=== PATIENT | female | born 1955 | race Caucasian/White ===

== ENCOUNTER 2023-04-11 13:46 | Outpatient (REF) | payer OTHER, SELFPAY ==
--- NOTE | ~2023-04-11 | MM_ITS ---
EXAMINATION: BONE DENSITOMETRY CLINICAL INDICATION: Asymptomatic menopausal state. COMPARISON: None (current study represents initial baseline exam). TECHNIQUE: Using a [employer] DXA System (software version: 13.1) manufactured by [employer], dual-energy x-ray absorptiometry was performed of the lumbar spine and left hip. The images are of good technical quality. Summary results are attached. FINDINGS: AP SPINE L1-L4: BMD 0.922 g/cm2, Z-score -1.4, T-score -2.2, osteopenia. LEFT FEMUR, NECK: BMD 0.767 g/cm2, Z-score -1.0, T-score -2.0, osteopenia. LEFT FEMUR, TOTAL: BMD 0.818 g/cm2, Z-score -0.9, T-score -1.5, osteopenia. IDENTIFIED RISK FACTORS: Height loss, low calcium intake, menopause, rheumatoid arthritis, tobacco user (current smoker). HISTORY OF FRACTURE: None listed. MEDICATIONS: Multivitamin. MM/XR DEXA axial skeleton IMPRESSION: 1. DIAGNOSIS: Osteopenia based on the lowest T-score value of -2.2 in the lumbar spine applying World Health Organization criteria. 2. 10-YEAR FRACTURE RISK PREDICTION, FRAX: Major osteoporotic fracture (clinical spine, forearm, hip or shoulder) 7.6%. Hip fracture 1.9%. 3. Treatment Recommendations: NOF guidelines recommend consideration for treatment in postmenopausal women and men age 50 and older presenting with the following: -A hip or vertebral (clinical or morphometric) fracture. -T-score less than or equal to -2.5 at the femoral neck or spine after appropriate evaluation to exclude secondary causes. -Low bone mass at the hip or spine and a 10-year fracture probability by FRAX of greater than or equal to 3% for hip fracture or greater than or equal to 20% for major osteoporotic fracture based on the [place] adapted WHO algorithm. 4. Other Recommendations: All treatment decisions require clinical judgment and consideration of individual patient factors, including patient preferences, comorbidities, previous drug use, risk factors not captured in the FRAX model (e.g. frailty, falls, vitamin D deficiency, increased bone turnover, interval significant decline in bone density) and possible under or overestimation of fracture risk by FRAX. Additional medical evaluation for secondary cause of low bone mineral density may be appropriate. FUTURE SCAN RECOMMENDATION: People with diagnosed cases of osteoporosis or at high risk for fracture should have regular bone mineral density tests. For patients eligible for Medicare, routine testing is allowed once every 2 years. The testing frequency can be increased to one year for patients who have rapidly progressing disease, those who are receiving or discontinuing medical therapy to restore bone mass, or have additional risk factors.
== END 2023-04-11 13:47 | disposition home or self-care (01) ==
LOC: HO.MAMMO 13:46
PROVIDERS: PCP Internal Medicine Geriatric Medicine; Visit Provider Internal Medicine Geriatric Medicine
DX: Z13.820 Encounter for screening for osteoporosis (principal); Z78.0 Asymptomatic menopausal state
CPT/HCPCS: 77080

== ENCOUNTER 2024-02-05 10:42 | Outpatient (REF) | payer MEDICARE, MEDICAID, SELFPAY ==
[2024-02-05 11:47] LABS: MANUAL DIFF FLAG NO
[2024-02-05 12:04] LABS: Basophils Absolute Auto 0.1 X10*3/uL (0.0-0.2); Eosinophils Absolute Auto 0.3 X10*3/uL (0.0-0.4); Eosinophils Percent Auto 3.3 % (0-4); Hematocrit 35.4 % (37.0-47.0); Imm Gran Abs Auto 0.03 X10*3/uL (0.00-0.03); Imm Gran Pct Auto 0.3 % (0.0-0.4); Lymphocytes Absolute Auto 2.6 X10*3/uL (1.2-4.9); Lymphocytes Percent Auto 28.8 % (20-40); Mean Corpuscular HGB Conc 31.1 g/dl (31.0-35.0); Mean Corpuscular Hemoglobin 29.6 pg (27.0-33.0); Mean Corpuscular Volume 95.2 fL (80.0-98.0); Mean Platelet Volume 11.6 fL (9.4-12.3); Monocytes Absolute Auto 0.6 X10*3/uL (0.1-1.2); Monocytes Percent Auto 6.4 % (2-11); Neutrophils Absolute Auto 5.4 x10*3/uL (2.0-8.3); Neutrophils Percent Auto 60.2 % (45-73); Platelet Count 315 X10*3/uL (160-400); Red Blood Count 3.72 X10*6/uL (4.20-5.50); Red Cell Distribution Width 14.1 % (11.0-16.0); White Blood Count 8.9 X10*3/uL (4.8-10.8)
[2024-02-05 12:19] LABS: Anion Gap 13 (12-20); Blood Urea Nitrogen 9 mg/dL (9-16); Calcium 9.3 mg/dL (8.4-10.2); Carbon Dioxide 29 mmol/L (22-29); Chloride 104 mmol/L (96-108); Estimated Glomerular Filt Rate > 60; Glucose Random 105 mg/dL (60-115); Potassium 3.9 mmol/L (3.3-5.1); Sodium 142 mmol/L (135-145)
== END 2024-02-05 10:43 | disposition home or self-care (01) ==
LOC: HO.HHCL 10:42
PROVIDERS: Visit Provider Internal Medicine Geriatric Medicine
DX: I10 Essential (primary) hypertension (principal); E11.42 Type 2 diabetes mellitus with diabetic polyneuropathy; Z79.01 Long term (current) use of anticoagulants; Z86.711 Personal history of pulmonary embolism
CPT/HCPCS: 36415; 80048; 85025

== ENCOUNTER 2024-04-14 11:03 | Outpatient (REF) | payer OTHER, SELFPAY ==
[2024-04-14 13:19] LABS: MANUAL DIFF FLAG NO
[2024-04-14 13:31] LABS: Basophils Absolute Auto 0.1 X10*3/uL (0.0-0.2); Basophils Percent Auto 0.9 % (0-2); Eosinophils Absolute Auto 0.2 X10*3/uL (0.0-0.4); Eosinophils Percent Auto 2.1 % (0-4); Hematocrit 31.5 % (37.0-47.0); Hemoglobin 9.7 g/dl (12.0-16.0); Imm Gran Abs Auto 0.03 X10*3/uL (0.00-0.03); Imm Gran Pct Auto 0.4 % (0.0-0.4); Lymphocytes Absolute Auto 2.6 X10*3/uL (1.2-4.9); Lymphocytes Percent Auto 30.4 % (20-40); Mean Corpuscular HGB Conc 30.8 g/dl (31.0-35.0); Mean Corpuscular Hemoglobin 26.9 pg (27.0-33.0); Mean Corpuscular Volume 87.3 fL (80.0-98.0); Mean Platelet Volume 11.2 fL (9.4-12.3); Monocytes Absolute Auto 0.6 X10*3/uL (0.1-1.2); Monocytes Percent Auto 7.4 % (2-11); Neutrophils Percent Auto 58.8 % (45-73); Platelet Count 418 X10*3/uL (160-400); Red Blood Count 3.61 X10*6/uL (4.20-5.50); Red Cell Distribution Width 14.3 % (11.0-16.0); White Blood Count 8.6 X10*3/uL (4.8-10.8)
[2024-04-14 13:39] LABS: Anion Gap 12 (12-20); Blood Urea Nitrogen 12 mg/dL (9-16); Calcium 9.5 mg/dL (8.4-10.2); Carbon Dioxide 27 mmol/L (22-29); Chloride 103 mmol/L (96-108); Estimated Glomerular Filt Rate > 60; Glucose Random 129 mg/dL (60-115); Potassium 3.3 mmol/L (3.3-5.1); Sodium 139 mmol/L (135-145)
== END 2024-04-14 11:04 | disposition home or self-care (01) ==
LOC: HO.HHCL 11:03
PROVIDERS: Visit Provider Internal Medicine Geriatric Medicine
DX: D64.9 Anemia, unspecified (principal); N17.9 Acute kidney failure, unspecified
CPT/HCPCS: 36415; 80048; 85025

== ENCOUNTER 2025-02-18 13:07 | Outpatient (REF) | payer OTHER, SELFPAY ==
--- OUTSIDE RECORDS SUMMARY | 2025-02-18 15:00 | XMS_ITS | Encounter Summary ---
Author Organization [employer] Address [address] [facility] 7t [place] [address] Care Team Providers Care Petroleum Inspector Supervisor Name Role Phone Name, Gilberto BOURNE Primary Care Provider [phone] Reason for Visit * Reason Onset Date Comments Medication Question 11/20/2023 Encounter Details Date Type Department Care Team ([facility] st Contact Info) Description 11/20/2023 Telephone [facility] MEDICINE [address] [place] [address] Name, MD Gilberto [address] [place] [address] Medication Question Social History Tobacco Use Types Packs/Day Years Used Date Smoking Tobacco: Every Day Cigarettes Passive Smoke Exposure: Never Smokeless Tobacco: Never Alcohol Use Standard Drinks/Week Comments Never 0 (1 standard drink = 0.6 oz pur e alcohol) PHQ-2 Answer Date Recorded Patient Health Questionnaire-2 Score 0 12/09/2022 Housing Stability Answer Date Recorded What is your housing situation today? I have elie cade 09/01/[address] you li ve. Do you have problems with any of the following? None of the above 09/01/2023 Food Insecurity Answer Date Recorded Within the past 12 months, y ou worried that your food would run out before you got money to buy more: Never True 09/01/2023 Within the past 12 months,th e food you bought just didn't last and you didn't have enough money to get more: Never True Transportation Answer Date Recorded In the past 12 months, has l ack of transportation kept you from medical appts, meetings, work or from getting things needed for daily living? No 09/01/2023 Utilities Answer Date Recorded In the past 12 months, has t he electric, gas, oil or water company threatened to shut off services in your home? No 09/01/2023 Depression Answer Date Recorded Patient Health Questionnaire-2 Score 0 12/09/2022 Comments Unknown Sex and Gender Information Value Date Recorded Sex Assigned at Female 09/16/2022 10:29 AM EDT Legal Sex Female 10:29 AM EDT Gender Identity Female 09/16/2022 10:29 AM EDT Sexual Orientation Straight 09/16/2022 10 :29 AM EDT documented as of this encounter Miscellaneous Notes * Telephone Encounter - Sukhjinder Villareal RN - 11/24/2023 4:24 PM EST T/C to [phone] for below message, No answer, LVM to call back on [phone]. * Telephone Encounter - Dashawn Soares - 11/20/2023 12:29 PM EST Tc from [facility] wanting to let pcp know she was wake and maintaining conversation during her visit today. Francy is also requesting a call back in regards toa few medication discrepancies and medication pt is not taking. Please contact Francy at [phone]. documented in this encounter Plan of Treatment Upcoming Encounters Date Type Department Care Team (Late st Contact Info) Description 05/30/2025 2:30 PM EDT Office Visit [facility] MEDICINE [address] [place] [address] Name, MD Gilberto [address] [place] [address] documented as of this encounter Visit Diagnoses Not on filedocumented in this encounter Care Teams Petroleum Inspector Supervisor Relationship Specialty Start Date End Date Name, MD Gilberto [address] [place] [phone] PCP - General Family Medicine 01/12/16 [employer] 07/29/24 documented as of this encounter
--- OUTSIDE RECORDS SUMMARY | 2025-02-18 15:00 | XMS_ITS | Encounter Summary ---
Author Organization [facility] Address [address] [facility] 7t [place] [address] Care Team Providers Care Development Educator Name Role Phone Name, Gilberto BOURNE Primary Care Provider [phone] Encounter Details Date Type Department Care Team (Late st Contact Info) Description 04/18/2023 Abstract [facility] MEDICINE [address] [place] [address] [phone] Name, MD Gilberto [address] [place] [phone] Social History Tobacco Use Types Packs/Day Years Used Date Smoking Tobacco: Never Smokeless Tobacco: Never PHQ-2 Answer Date Recorded Patient Health Questionnaire-2 Score 0 12/09/2022 Depression Answer Date Recorded Patient Health Questionnaire-2 Score 0 12/09/2022 Comments Unknown Sex and Gender Information Value Date Recorded Sex Assigned at Female 09/16/2022 10:29 AM EDT Legal Sex Female 10:29 AM EDT Gender Identity Female 09/16/2022 10:29 AM EDT Sexual Orientation Straight 09/16/2022 10 :29 AM EDT COVID-19 Exposure Response Date Recorded In the last 10 days, have yo u been in contact with someone who was confirmed or suspected to have Coronavirus/COVID-19? No / Unsure 03/26/2023 3:14 PM EDT documented as of this encounter Plan of Treatment Upcoming Encounters Date Type Department Care Team (Late st Contact Info) Description 05/30/2025 2:30 PM EDT Office Visit [facility] MEDICINE [address] [place] [address] [phone] Name, MD Gilberto [address] [place] [address] [phone] documented as of this encounter Procedures Procedure Name Priority Date/Time Associated Diagnosis Comments COLONOSCOPY Routine 07/09/2022 12:14 PM EDT documented in this encounter Results * Hm Colonoscopy (07/09/2022 12:14 PM EDT) Colonoscopy Normal Normal Narrative Ketty Peguero - 07/09/2022 12:14 PM EDT Recommended 7 years follow up Historical Provider HEALTH MAINTENANCE Final Result documented in this encounter Visit Diagnoses Not on filedocumented in this encounter Care Teams Development Educator Relationship Specialty Start Date End Date Name, MD Gilberto [address] [place] [address] PCP - General Family Medicine 01/12/16 [employer] 07/29/24 documented as of this encounter
--- OUTSIDE RECORDS SUMMARY | 2025-02-18 15:00 | XMS_ITS | Encounter Summary ---
Author Organization [employer] Address [address] [facility] 7t [place] [address] Care Team Providers Care Journal Box Inspector Name Role Phone Name, Gilberto BOURNE Primary Care Provider [phone] Reason for Visit * Reason Comments Med Refill Encounter Details Date Type Department Care Team ([facility] st Contact Info) Description 06/30/2024 Refill [facility] MEDICINE [address] [place] [address] Name, MD Gilberto [address] [place] [address] Chronic pain syndrome Social History Tobacco Use Types Packs/Day Years Used Date Smoking Tobacco: Former Cigarettes Passive Smoke Exposure: Never Smokeless Tobacco: Never Alcohol Use Standard Drinks/Week Comments Never 0 (1 standard drink = 0.6 oz pur e alcohol) PHQ-2 Answer Date Recorded Patient Health Questionnaire-2 Score 0 12/09/2022 Housing Stability Answer Date Recorded What is your housing situation today? I have elie cade 01/06/[address] you li ve. Do you have problems with any of the following? None of the above 01/06/2024 Food Insecurity Answer Date Recorded Within the past 12 months, y ou worried that your food would run out before you got money to buy more: Never True 01/06/2024 Within the past 12 months,th e food you bought just didn't last and you didn't have enough money to get more: Never True Transportation Answer Date Recorded In the past 12 months, has l ack of transportation kept you from medical appts, meetings, work or from getting things needed for daily living? No 01/06/2024 Utilities Answer Date Recorded In the past 12 months, has t he electric, gas, oil or water company threatened to shut off services in your home? No 01/06/2024 Depression Answer Date Recorded Patient Health Questionnaire-2 Score 2 01/06/2024 Comments Unknown Sex and Gender Information Value Date Recorded Sex Assigned at Female 09/16/2022 10:29 AM EDT Legal Sex Female 10:29 AM EDT Gender Identity Female 09/16/2022 10:29 AM EDT Sexual Orientation Straight 09/16/2022 10 :29 AM EDT documented as of this encounter Plan of Treatment Upcoming Encounters Date Type Department Care Team (Late st Contact Info) Description 05/30/2025 2:30 PM EDT Office Visit [facility] MEDICINE [address] [place] [phone] Name, MD Gilberto [address] [place] [phone] documented as of this encounter Visit Diagnoses Diagnosis Chronic pain syndrome documented in this encounter Care Teams Journal Box Inspector Relationship Specialty Start Date End Date Name, MD Gilberto [address] [place] [phone] PCP - General Family Medicine 01/12/16 [employer] 07/29/24 documented as of this encounter
--- OUTSIDE RECORDS SUMMARY | 2025-02-18 15:00 | XMS_ITS | Encounter Summary ---
Author Organization [employer] Address [address] [facility] 7t [place] [address] Care Team Providers Care Medical Attendant Name Role Phone Name, Gilberto BOURNE Primary Care Provider [phone] Reason for Visit * Reason Onset Date Comments Call Back Request 08/26/2023 Encounter Details Date Type Department Care Team ([facility] st Contact Info) Description 08/26/2023 Telephone [facility] MEDICINE [address] [place] [address] Name, MD Gilberto [address] [place] [address] Call Back Request Social History Tobacco Use Types Packs/Day Years Used Date Smoking Tobacco: Every Day Cigarettes Passive Smoke Exposure: Never Smokeless Tobacco: Never Alcohol Use Standard Drinks/Week Comments Never 0 (1 standard drink = 0.6 oz pur e alcohol) PHQ-2 Answer Date Recorded Patient Health Questionnaire-2 Score 0 12/09/2022 Housing Stability Answer Date Recorded What is your housing situation today? I have elie cade 08/26/[address] you li ve. Do you have problems with any of the following? None of the above 08/26/2023 Food Insecurity Answer Date Recorded Within the past 12 months, y ou worried that your food would run out before you got money to buy more: Never True 08/26/2023 Within the past 12 months,th e food you bought just didn't last and you didn't have enough money to get more: Never True 08/2023 Transportation Answer Date Recorded In the past 12 months, has l ack of transportation kept you from medical appts, meetings, work or from getting things needed for daily living? No 08/26/2023 Utilities Answer Date Recorded In the past 12 months, has t he electric, gas, oil or water company threatened to shut off services in your home? No 08/26/2023 Depression Answer Date Recorded Patient Health Questionnaire-2 Score 0 12/09/2022 Comments Unknown Sex and Gender Information Value Date Recorded Sex Assigned at Female 09/16/2022 10:29 AM EDT Legal Sex Female 10:29 AM EDT Gender Identity Female 09/16/2022 10:29 AM EDT Sexual Orientation Straight 09/16/2022 10 :29 AM EDT documented as of this encounter Miscellaneous Notes * Telephone Encounter - Sukhjinder Villareal RN - 09/15/2023 4:00 PM EDT T/C to pt. For below message, pt. Wants to re-schedule Tele. Nurse visit. Pt. Re-schedule for tele.Nurse visit on 09/16/2023. Pt. Verbally agreed and understood. * Telephone Encounter - Jennifer Espinoza - 09/15/2023 10:51 AM EDT Tc from pt requesting a call back in regards below. * Telephone Encounter - Sukhjinder Villareal RN - 09/01/2023 10:56 AM EDT T/C to pt. Through studdex id - [id number] to inform pt. That she suppose not to take Pravastatin 20 mg, she suppose to take only Pravastatin 40 mg, Pravastatin 20 mg was discontinue, No answer. Lvm to call back on [phone]. * Telephone Encounter - Sukhjinder Villareal RN - 09/01/2023 10:44 AM EDT T/C form [facility], just want to make sure that pt. Is on pravastatin 40 mg only not on Pravastatin 20 mg. [facility] was informed that Pt. Is only on Pravastatin 40 mg, Pravastatin 20 mg was discontinued. RN will also call pt. And make sure that pt. Should not take Pravastatin 20 mg any more. [facility] verbally agreed and understood. * Telephone Encounter - Sukhjinder Villareal RN - 09/01/2023 9:54 AM EDT Return T/C to [facility] on [phone] for below message, No answer. LVM to call back on [phone]. * Telephone Encounter - Jennifer Espinoza - 08/26/2023 2:05 PM EDT Tc from [facility] (Nurse Practitioner) requesting a call back on regards pt medications. Please contact [facility] at [phone] documented in this encounter Plan of Treatment Upcoming Encounters Date Type Department Care Team (Late st Contact Info) Description 05/30/2025 2:30 PM EDT Office Visit [facility] MEDICINE [address] [place] [phone] Name, MD Gilberto [address] [place] [address] documented as of this encounter Visit Diagnoses Not on filedocumented in this encounter Care Teams Medical Attendant Relationship Specialty Start Date End Date Name, MD Gilberto [address] [place] [address] PCP - General Family Medicine 01/12/16 [employer] 07/29/24 documented as of this encounter
--- OUTSIDE RECORDS SUMMARY | 2025-02-18 15:00 | XMS_ITS | Encounter Summary ---
Author Organization [employer] Address [address] [facility] 7t [place] [address] Care Team Providers Care Pulp Cooker Name Role Phone Name, Gilberto BOURNE Primary Care Provider [phone] Reason for Visit * Reason Comments Med Refill Encounter Details Date Type Department Care Team ([facility] st Contact Info) Description 11/19/2024 Refill [facility] MEDICINE [address] [place] [address] Name, MD Gilberto [address] [place] [address] Social History Tobacco Use Types Packs/Day Years [...] Description 05/30/2025 2:30 PM EDT Office Visit [facility] MEDICINE [address] [place] [phone] NameGilberto MD [address] [place] [address] documented as of this encounter Visit Diagnoses Not on filedocumented in this encounter Care Teams Pulp Cooker Relationship Specialty Start Date End Date NameGilberto MD [address] [place] [phone] PCP - General Family Medicine 01/12/16 [employer] 07/29/24 documented as of this encounter
--- OUTSIDE RECORDS SUMMARY | 2025-02-18 15:00 | XMS_ITS | Encounter Summary ---
Author Organization [employer] Address [address] [facility] 7t [place] [address] Care Team Providers Care Voting Machine Mechanic Name Role Phone Name, Gilberto BOURNE Primary Care Provider [phone] Reason for Visit * Reason Onset Date Comments Referral 02/05/2023 Encounter Details Date Type Department Care Team (Late st Contact Info) Description 02/05/2023 Telephone [facility] MEDICINE [address] [place], [place] [phone] Name, MD Gilberto [address] [place] [address] Referral Social History Tobacco Use Types Packs/Day Years [...] encounter Miscellaneous Notes * Telephone Encounter - Bc Spaulding - 02/05/2023 12:29 PM EDT Tc from pt requesting a referral for [facility] for implants. please contact pt at [phone] documented in this encounter Plan of Treatment Upcoming Encounters Date Type Department Care Team (Late st Contact Info) Description 05/30/2025 2:30 PM EDT Office Visit [facility] MEDICINE [address] [place] [address] Name, [place] [address] documented as of this encounter Visit Diagnoses Not on filedocumented in this encounter Care Teams Voting Machine Mechanic Relationship Specialty Start Date End Date Name, MD Gilberto [facility] [place] [address] PCP - General Family Medicine 01/12/16 [email or web address] 07/29/24 documented as of this encounter
--- OUTSIDE RECORDS SUMMARY | 2025-02-18 15:00 | XMS_ITS | Encounter Summary ---
Author Organization [employer] Address [address] [facility] 7t [place] [address] Care Team Providers Care Migrant Leader Name Role Phone Name, Gilberto BOURNE Primary Care Provider [phone] Reason for Visit * Reason Comments Med Refill Encounter Details Date Type Department Care Team ([facility] st Contact Info) Description 07/31/2024 Refill [facility] MEDICINE [address] [place] [address] Name, MD Gilberto [address] [place] [address] Chronic pain syndrome Social History Tobacco Use [...] Description 05/30/2025 2:30 PM EDT Office Visit [facility] MEDICINE [address] [place] [phone] Name, MD Gilberto [address] [place] [address] documented as of this encounter Visit Diagnoses Diagnosis Chronic pain syndrome documented in this encounter Care Teams Migrant Leader Relationship Specialty Start Date End Date Name, MD Gilberto [address] [place] [address] PCP - General Family Medicine 01/12/16 [employer] 07/29/24 documented as of this encounter
--- OUTSIDE RECORDS SUMMARY | 2025-02-18 15:00 | XMS_ITS | Encounter Summary ---
Author Organization [employer] [facility] Address [address] [facility] 7t [place] [address] Care Team Providers Care Moshgiach Name Role Phone NameGilberto MD Primary Care Provider Reason for Visit * Reason Comments Med Refill Encounter Details Date Type Department Care Team (Late st Contact Info) Description 08/13/2023 Refill [facility] MEDICINE [address] [place] [address] [phone] NameGilberto MD [address] [place] [address] [phone] Social History Tobacco Use Types Packs/Day Years Used Date Smoking Tobacco: Never Passive Smoke Exposure: Never Smokeless Tobacco: Never PHQ-2 Answer Date [...] Description 05/30/2025 2:30 PM EDT Office Visit [facility] MEDICINE [address] [place] [address] [phone] Gilberto Calixto MD [address] [place] [address] documented as of this encounter Visit Diagnoses Not on filedocumented in this encounter Care Teams Moshgiach Relationship Specialty Start Date End Date Gilberto Calixto, MD [address] [place] [address] PCP - General Family Medicine 01/12/16 [employer] 07/29/24 documented as of this encounter
--- OUTSIDE RECORDS SUMMARY | 2025-02-18 15:00 | XMS_ITS | Encounter Summary ---
Author Organization [employer] Address [address] [facility] 7t [place] [address] Care Team Providers Care Transport Pilot Name Role Phone Name, Gilberto BOURNE Primary Care Provider [phone] Encounter Details Date Type Department Care Team ([facility] st Contact Info) Description 01/26/2025 Orders Only [facility] [address] [place], [place] [phone] Provider, MD Abraham Social History Tobacco Use Types Packs/Day Years [...] Description 05/30/2025 2:30 PM EDT Office Visit [facility] MEDICINE [address] [place] [address] Name, MD Gilberto [address] [place] [address] documented as of this encounter Procedures Procedure Name Priority Date/Time Associated Diagnosis Comments ANATOMIC PATHOLOGY OUTREACH Routine 01/20/2025 2:44 PM EST documented in this encounter Results * Anatomic Pathology Outreach (01/20/2025 2:44 PM EST) Tissue Historical Provider LAB PATHOLOGY ORDERABLES Final Result documented in this encounter Visit Diagnoses Not on filedocumented in this encounter Care Teams Transport Pilot Relationship Specialty Start Date End Date Name, MD Gilberto [address] [place] [address] PCP - General Family Medicine 01/12/16 [employer] 07/29/24 documented as of this encounter
--- OUTSIDE RECORDS SUMMARY | 2025-02-18 15:00 | XMS_ITS | Clinical Summary ---
Author Organization [facility] Address [id number] [place] [id number] Care Team Providers Care Matrix Bath Attendant Name Role Phone Name, Gilberto BOURNE Primary Care Provider Surgical History Surgery Date Site/Laterality Comments TUBAL LIGATION PROCEDURE: HISTORICAL TUBAL LIGATION OTHER SURGICAL HISTORY PROCEDURE: ---- OTHER ----; COMMENT: varicose vein surgery OTHER SURGICAL HISTORY 06/12/2023 PROCEDURE: IN SLCTV CATHJ 3RD+ ORD SLCTV ABDL PEL/LXTR BRNCH OTHER SURGICAL HISTORY 06/12/2023 PROCEDURE: X-RAY EXAM OF ARM/LEG ARTERY OTHER SURGICAL HISTORY 06/12/2023 PROCEDURE: ULTRASOUND GUIDANCE FOR VASCULAR AC Medical History Medical History Date Comments Cellulitis 02/11/2013 DX:Cellulitis Edema 02/11/2013 DX:Edema HTN (hypertension) 02/11/2013 DX:HTN (hyper tension) Depression with anxiety 02/11/2013 DX:Depre ssion with anxiety Insomnia 02/11/2013 DX:Insomnia Chronic pain 02/11/2013 DX:Chronic pain GERD (gastroesophageal reflux disease) 02/11/2013 DX:GERD (gastroesophageal reflux disease) Asthma 02/11/2013 DX:Asthma PVD (peripheral vascular dis ease) ([facility]) 02/11/2013 DX:PVD (peripheral vascular disease) ([facility]) COPD (chronic obstructive pu lmonary disease) ([facility]) 02/11/2013 DX:COPD (chronic obstructive pulmonary disease) ([facility]) Tobacco use 02/11/2013 DX:Tobacco use Osteopenia 02/11/2013 DX:Osteopenia Shoulder pain, bilateral 02/11/2013 DX:Shou lder pain, bilateral Lichen planus 03/28/2014 DX:Lichen planus Family History Medical History Relation Name Comments Breast cancer Neg Hx Colon cancer Neg Hx Ovarian cancer Neg Hx Uterine cancer Neg Hx Relation Name Status Comments Brother Alive thyroid problem s Father Alive htn, DJD Mother Alive htn, DJD Son Alive thyroid problem s Social History Tobacco Use Types Packs/Day Years Used Date Smoking Tobacco: Every Day Cigarettes Smokeless Tobacco: Current Alcohol Use Standard Drinks/Week Comments No 0 (1 standard drink = 0.6 oz pur e alcohol) Comments Unknown Sex and Gender Information Value Date Recorded Sex Assigned at Not on file Legal Sex Female 3:10 PM EST Gender Identity Not on file Sexual Orientation Not on file Obstetrics History Last Filed Vital Signs Vital Sign Reading Time Taken Comments Blood Pressure 155/84 06/30/2023 2:33 PM EDT R A rm Pulse 83 06/30/2023 2:33 PM EDT Temperature - - Respiratory Rate - - Oxygen Saturation - - Inhaled Oxygen Concentration - - Weight 85.7 kg (189 lb) 08/20/2023 2:20 PM EDT Height 160 cm (5' 3 ) 08/20/2023 2:20 PM EDT Body Mass Index 33.48 08/20/2023 2:20 PM EDT Plan of Treatment Health Maintenance Due Date Last Done Comments Breast Cancer Screening 1955 Diabetes: Annual GFR (Glomerular Filtration Rate) 1957 Diabetes: Annual Foot Exam 1967 Diabetes: Annual Retina Eye Exam 1967 Zoster Vaccines (1 of 2) 2007 Pneumococcal Vaccine: 50+ Years (2 of 2 - PCV) 04/30/2014 04/30/2013 RSV Immunization Adult Patients (1 - Risk 60-74 years 1-dose series) 2017 Cholesterol Screening (Lipid Panel) 10/30/2022 Colorectal Cancer Screening: Stool Based Tests (FOBT/FIT) 10/30/2022 Depression Screening 10/30/2022 Diabetes: Annual Urine Albumin-Creatinine Ratio (uACR) 10/30/2022 Diabetes: Blood Sugar Contro l Test (HGBA1C) 10/30/2022 Hepatitis C Screening 10/30/2022 Hypertension/CHF/CAD Annual BMP Blood Test 10/30/2022 Osteoporosis Screening (Bone Density Screening) 10/30/2022 Social Influencers of Health Screening 10/30/2022 Falls Risk Assessment 2022 DTaP,Tdap,and Td Vaccines (2 - Td or Tdap) 09/02/2023 09/02/2013 COVID-19 Vaccine (1 - 2023-2 5 season) 2024 Influenza Vaccine (#1) 2024 4, 09/02/2013 HIB Vaccines Aged Out No longer eligi ble based on patient's age to complete this topic HPV Vaccines Aged Out No longer eligi ble based on patient's age to complete this topic Hepatitis A Vaccines Aged Out No long er eligible based on patient's age to complete this topic Hepatitis B Vaccines Aged Out No long er eligible based on patient's age to complete this topic IPV Vaccines Aged Out No longer eligi ble based on patient's age to complete this topic MMR Vaccines Aged Out No longer eligi ble based on patient's age to complete this topic Meningococcal ACWY Vaccine Aged Out N o longer eligible based on patient's age to complete this topic Meningococcal B Vacine Aged Out No lo nger eligible based on patient's age to complete this topic RSV Immunization Patients Under 20 months Aged Out No longer eligible b ased on patient's age to complete this topic Varicella Vaccines Aged Out No longer eligible based on patient's age to complete this topic Advance Directives Documents on File Type Date Recorded 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
--- OUTSIDE RECORDS SUMMARY | 2025-02-18 15:00 | XMS_ITS | Encounter Summary ---
Author Organization [employer] Address [address] [facility] [address] [place] [address] Care Team Providers Care Bottom Turner Name Role Phone Name, Gilberto BOURNE Primary Care Provider [phone] Reason for Visit * Reason Comments Med Refill Encounter Details Date Type Department Care Team ([facility] st Contact Info) Description 05/27/2024 Refill [facility] [address] [place] [address] Name, MD Gilberto [address] [place] [address] Chronic pain syndrome Social History Tobacco Use [...] Description 05/30/2025 2:30 PM EDT Office Visit [facility] [address] [place] [phone] Name, MD Gilberto [address] [place] [phone] documented as of this encounter Visit Diagnoses Diagnosis Chronic pain syndrome documented in this encounter Care Teams Bottom Turner Relationship Specialty Start Date End Date Name, MD Gilberto [address] [place] [phone] PCP - General Family Medicine 01/12/16 [employer] 07/29/24 documented as of this encounter
--- OUTSIDE RECORDS SUMMARY | 2025-02-18 15:00 | XMS_ITS | Encounter Summary ---
Author Organization [employer] Address [address] [facility] [address] [place] [address] Care Team Providers Care Drafter Electromechanical Name Role Phone Name, Gilberto BOURNE Primary Care Provider [phone] Reason for Visit * Reason Onset Date Comments Med Refill 12/23/2023 Encounter Details Date Type Department Care Team ([facility] st Contact Info) Description 12/23/2023 Telephone [facility] [address] [place] [address] Name, MD Gilberto [address] [place] [address] Med Refill Social History Tobacco Use Types Packs/Day Years [...] Telephone Encounter - Sukhjinder Villareal RN - 12/23/2023 2:42 PM EST T/C to pt. Through [employer] id - [id number] for below message, pt. Advised to bring [facility] with her or submit at Medical records. Pt. Verbally agreed and understood. * Telephone Encounter - Sukhjinder Villareal RN - 12/23/2023 1:43 PM EST T/C to pt. For below message through Streetline id - [id number]. pt. States when she went to [place] she had to go to ED and she was undergone for lung surgery. As per pt. Doctor was able to remove blood clot from one lung but was not able to remove from another and she was prescribe Eliquis medication. Pt. Has upcoming apt. With PCP on 12/30/2023 and she does has medication for more 5 days. Pt. Is taking Eliquis 5 mg twice daily. Pt. Is asking PCP to send medication to pharmacy. Please review and advise. * Telephone Encounter - Jennifer Espinoza - 12/23/2023 1:18 PM EST [id number] - [place], [place] - [address] * Telephone Encounter - Jennifer Espinoza - 12/23/2023 1:15 PM EST TC from pt requesting Eliquis 5MG, medication was prescribed on hospital on [place]. Welsh Speaker documented in this encounter Plan of Treatment Upcoming Encounters Date Type Department Care Team (Late st Contact Info) Description 05/30/2025 2:30 PM EDT Office Visit [facility] [address] [place] [address] Name, MD Gilberto [address] [place] [address] documented as of this encounter Visit Diagnoses Not on filedocumented in this encounter Care Teams Drafter Electromechanical Relationship Specialty Start Date End Date Name, MD Gilberto [address] [place] [address] PCP - General Family Medicine 01/12/16 [employer] 07/29/24 documented as of this encounter
--- OUTSIDE RECORDS SUMMARY | 2025-02-18 15:00 | XMS_ITS | Encounter Summary ---
Author Organization [employer] Address [address] [facility] [address] [place] [address] Care Team Providers Care Betting Clerk Name Role Phone Name, Gilberto BOURNE Primary Care Provider [phone] Reason for Visit * Reason Onset Date Comments Hospital Follow-up 01/28/2025 Encounter Details Date Type Department Care Team ([facility] st Contact Info) Description 01/28/2025 Telephone [facility] [address] [place], [place] [phone] Name, MD Gilberto [address] [place] [address] Hospital Follow-up Social History Tobacco Use Types Packs/Day Years Used Date Smoking Tobacco: Former Cigarettes Passive Smoke Exposure: Never Smokeless Tobacco: Never Alcohol Use Standard Drinks/Week Comments Never 0 (1 standard drink = 0.6 oz pur e alcohol) PHQ-2 Answer Date Recorded Patient Health Questionnaire-2 Score 0 12/09/2022 Housing Stability Answer Date Recorded What is your housing situation today? I have leie cade 01/06/[address] you [...] encounter Miscellaneous Notes * Telephone Encounter - Cesar Elkins - 01/28/2025 3:27 PM EDT Tc from pt requesting a HDF appt. Hospital: [facility] Date of admission: 01/21/25 Discharge date: 01/24/25 Diagnosed: Enemia *Send message to [place] Clinical Care Coordinators Pt prefers Afternoon Apt's Contact pt at [phone] documented in this encounter Plan of Treatment Upcoming Encounters Date Type Department Care Team (Late st Contact Info) Description 05/30/2025 2:30 PM EDT Office Visit [facility] [address] [place] [phone] NameGilberto MD [address] [place] [address] documented as of this encounter Visit Diagnoses Not on filedocumented in this encounter Care Teams Betting Clerk Relationship Specialty Start Date End Date NameGilberto MD [address] [place] [address] PCP - General Family Medicine 01/12/16 [employer] 07/29/24 documented as of this encounter
--- OUTSIDE RECORDS SUMMARY | 2025-02-18 15:00 | XMS_ITS | Encounter Summary ---
Author Organization [employer] [facility] Address [address] [facility] [address] [place] [address] Care Team Providers Care Paver Installer Name Role Phone Name, Gilberto BOURNE Primary Care Provider Encounter Details Date Type Department Care Team (Late st Contact Info) Description 11/21/2022 Telephone [facility] [address] [place] [phone] Gilberto Calixto MD [address] [place] [phone] Social History Tobacco Use Types Packs/Day Years Used Date Smoking Tobacco: Never Assessed Comments Unknown Sex and Gender Information Value [...] Description 05/30/2025 2:30 PM EDT Office Visit [facility] [address] [place] [phone] Gilberto Calixto MD [address] [place] [phone] documented as of this encounter Visit Diagnoses Not on filedocumented in this encounter Care Teams Paver Installer Relationship Specialty Start Date End Date Gilberto Calixto MD [address] [place] [phone] PCP - General Family Medicine 01/12/16 [employer] 07/29/24 documented as of this encounter
--- OUTSIDE RECORDS SUMMARY | 2025-02-18 15:00 | XMS_ITS | Clinical Summary ---
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 traMADol (Ultram) 50 MG tablet TAKE 2 TABLETS BY MOUTH FOUR TIMES DAILY NEEDED FOR PAIN 11/15/20 22 Active LORazepam (Ativan) 1 MG tablet Take 1 mg by mouth at bedtime. 03/19/20 23 Active escitalopram (Lexapro) 5 MG tablet Take 5 mg by mouth in the morning. 03/19/20 23 Active mirtazapine (Remeron) 15 MG tablet Take 1 tablet by mouth at bedtime. 05/26/20 23 Active Blood Pressure Monitor kitIndications: Essential hypertension 1 kit 2 times daily. 1 kit 06/20/20 23 Active Wound Cleansers (Vashe Cleansing) solution Use daily to clean left lower extremity wound 250 mL 3 12/29/19 24 Active albuterol (2.5 MG/3ML) 0.083% nebulizer solutionIndicat ions:Chronic obstructive pulmonary disease, unspecified COPD type (CMS/HCC) USE 1 VIAL IN NEBULIZER EVERY 6 HOURS - And As Needed 90 mL 1 04/27/20 24 Active glucose blood (OneTouch Ultra) test strip Use to test blood sugar 1 times daily 100 each 12 05/11/20 24 025 Active OneTouch Delica Lancets 33G misc Use to test blood sugar 1 times daily 100 each 11 05/11/20 24 Active Alcohol Swabs 70 % pads Use to test blood sugar 1 times daily 100 each 11 05/11/20 Active Blood Glucose Monitoring Suppl (ONE TOUCH ULTRA 2) w/Device kit Use to test blood sugar 1 times daily 1 kit 05/11/20 Active albuterol 108 (90 Base) MCG/ACT inhaler INHALE 2 PUFFS BY MOUTH EVERY 6 HOURS IF NEEDED FOR WHEEZING 8.5 g 11 08/25/20 24 Active metoprolol tartrate (Lopressor) 50 MG tablet TAKE 1 TABLET(50 MG) BY MOUTH TWICE DAILY 60 tablet 5 11/19/19 25 Active pravastatin (Pravachol) 20 MG tablet TAKE 1 TABLET BY MOUTH EVERY DAY AT BEDTIME 30 tablet 5 11/19/19 25 Active lisinopril-hydr oCHLOROthiazide 20-12.5 MG tablet TAKE 1 TABLET BY MOUTH EVERY MORNING 90 tablet 1 01/04/20 25 Active Multiple Vitamin (Multivitamin) tablet Take 1 tablet by mouth Once per day. 01/09/20 25 Active FeroSul 325 (65 Fe) MG tablet Take 1 tablet by mouth every other day. 01/25/20 25 Active Banophen 25 MG capsule Take 1 capsule by mouth Once per day. 01/12/20 25 Active Enoxaparin Sodium 80 MG/0.8ML solution prefilled syringe Inject 70 mg under the skin every 12 (twelve) hours. 01/25/20 25 Active chlorhexidine (Peridex) 0.12 % solution Take 15 mL by mouth 2 times daily. 01/22/20 25 Active metFORMIN (Glucophage) 850 MG tabletIndicatio ns:Type 2 diabetes mellitus with diabetic polyneuropathy, without long-term current use of insulin (CMS/[facility]) TAKE 1 TABLET BY MOUTH TWICE DAILY WITH THE MORNING AND EVENING MEAL 180 tablet 3 02/05/20 25 Active omeprazole (PriLOSEC) [address] capsule TAKE 1 CAPSULE(20 MG) BY MOUTH DAILY. DO NOT CRUSH OR CHEW 30 capsule 5 02/08/20 25 Active Acetaminophen Extra Strength 500 MG tablet Take 1 tablet (500 mg) by mouth every 8 (eight) hours if needed (moderate pain). 90 tablet 2 02/08/20 25 Active metFORMIN (Glucophage) 850 MG tabletIndicatio ns:Type 2 diabetes mellitus with diabetic polyneuropathy, without long-term current use of insulin (CMS/HCC) TAKE 1 TABLET BY MOUTH TWICE DAILY WITH THE MORNING AND EVENING MEAL 180 tablet 3 12/11/19 24 025 Discontinued acetaminophen (Tylenol) 325 MG tablet Take 2 tablets by mouth every 4 (four) hours if needed for fever. 01/03/20 24 025 Discontinued(Du plicate order (will not trigger notification to Pharmacy)) Banophen 25 MG tablet Take 1 tablet by mouth if needed each day. 01/01/20 24 025 Discontinued(Me d list cleanup (will not trigger notification to Pharmacy)) pravastatin (Pravachol) 40 MG tablet Take 1 tablet (40 mg) by mouth at bedtime. 30 tablet 1 01/06/20 24 025 Discontinued(Me d list cleanup (will not trigger notification to Pharmacy)) Multiple Vitamin (multivitamin) capsule Take 1 capsule by mouth Once per day. 30 capsule 11 05/10/20 24 025 Discontinued(Me d list cleanup (will not trigger notification to Pharmacy)) omeprazole (PriLOSEC) [address] capsule Take 1 capsule (20 mg) by mouth Once per day. Do not crush or chew. 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 Paxlovid was offered, risk vs benefits were discussed. Told to remain hydrated, rest and in case of worsening symptoms to visit er. Mild intermittent asthma 12/09/2022 Deep venous thrombosis of lower extremity 2022 Overview (01/06/2024): 11/2023 at [facility] in [place] after large PE Polyneuropathy due to type 2 diabetes mellitus 0 12/09/2022 Atypical chest pain 05/07/2022 Deformity of foot 07/21/2018 Chronic pain 07/13/2018 Ankle pain 11/19/2017 Rib pain 08/20/2017 Recurrent major depression in partial remission 05/07/2017 Stasis dermatitis 02/18/2017 Osteoarthritis of both ankles 02/05/2017 Osteoarthritis of right ankle and foot 7 Urinary incontinence 02/05/2017 Chronic obstructive lung disease 07/08/2016 Anemia 04/17/2016 Hyperlipidemia 01/12/2016 Hypertension 01/12/2016 Depression 01/12/2016 Obstructive sleep apnea syndrome 01/12/2016 Peripheral venous insufficiency 01/12/2016 Tobacco dependence syndrome 01/12/2016 Diabetes mellitus 01/12/2016 Resolved Problems Problem Noted Date Diagnosed Date Resolved Date Asthma 06/19/2023 01/06/2024 Preop cardiovascular exam 06/19/2023 Fever and chills 12/11/2022 05/12/2023 Acute cough 12/11/2022 01/06/2024 Cellulitis of lower limb 02/18/2017 Osteoarthritis 01/12/2016 02/05/2024 Encounters Date Type Department Care Team Description 02/11/2025 Telephone [facility] [address] [place] [phone] Jennifer Weslye MA april recalls 02/07/2025 1:00 PM EDT Office Visit [facility] [address] [place] [address] Name, MD Gilberto Iron deficiency anemia, unspecified iron deficiency anemia type (Primary Dx); DVT of deep femoral vein, right ([facility]); Type 2 diabetes mellitus with diabetic polyneuropathy, without long-term current use of insulin ([facility]); Pulmonary embolism without acute cor pulmonale, unspecified chronicity, unspecified pulmonary embolism type (CMS/HCC) 02/07/2025 Telephone [facility] [address] [place] [address] Rain Barahona RN 02/07/2025 Travel 02/07/2025 Refill [facility] [address] [place] [phone] Gilberto Calixto MD 02/03/2025 Refill [facility] [address] [place] [address] Gilberto Calixto MD Type 2 diabetes mellitus with diabetic polyneuropathy, without long-term current use of insulin ([facility]/HCC) 02/03/2025 Telephone [facility] [address] [place] [phone] Jennifer Wesley MA chart prep 01/28/2025 Patient Outreach [facility] [address], [place] [phone] Gilberto Calixto MD Transition Of Care (Tcm) (HDF scheduled.) 01/28/2025 Telephone [facility] [address] [place] [phone] Gilberto Calixto MD Hospital Follow-up 01/28/2025 Abstract [facility] [address] [place] [phone] Gilberto Calixto MD 01/26/2025 Orders Only [facility] [address] [place] [phone] ProviderAbraham MD 01/26/2025 Patient Outreach [facility] [address] [place] [phone] Gilberto Calixto MD Pre-visit Planning (Pre-visit planning - LVM ) 01/08/2025 Refill [facility] [address] [place] [phone] Gilberto Calixto MD 01/02/2025 Refill [facility] [address] [place] [phone] Gilberto Calixto MD 12/09/2024 Refill [facility] [address] [place] [phone] Name, MD Gilberto from Last 3 Months Immunizations Name Administration Dates Next Due Influenza High-dose Quadriva lent Preservative Free 08/22/2023,09/04/2020 Influenza injectable quadriv alent IIV4 with preservative 09/03/2018,08/20/2017 Influenza injectable quadriv alent preservative free 08/28/2022,08/06/2019 Influenza, High Dose Seasona l, Preservative Free 08/13/2024 Influenza, IIV3, injectable 09/19/2021,1 ,09/26/2015,09/20,09/02/2013 Moderna Covid-19 Vaccine 6+ Bivalent 12/09/2022 Pfizer Covid-19 Vaccine 12+ 08/13/2024 Pneumococcal Conjugate PCV 20 06/20/2023 Pneumococcal Polysaccharide PPSV23 04/30/2013 Tdap 09/14/2015,09/02/2013 Zoster, Recombinant 08/22/2023,06/20/2023 Social History Tobacco Use Types Packs/Day Years Used Date Smoking Tobacco: Some Days Cigarettes Passive Smoke Exposure: Never Smokeless Tobacco: Never Tobacco Cessation:Ready to Q uit: Not Asked Alcohol Use Standard Drinks/Week Comments Never 0 [...] Orientation Straight 09/16/2022 10 :29 AM EDT Last Filed Vital Signs Vital Sign Reading Time Taken Comments Blood Pressure 122/68 02/07/2025 1:08 PM EDT Pulse 62 02/07/2025 1:08 PM EDT Temperature 36.1 ??C (97 ??F) 02/07/2025 1:08 PM EDT Respiratory Rate 18 02/07/2025 1:08 PM EDT Oxygen Saturation 97% 02/07/2025 1:08 PM EDT Inhaled Oxygen Concentration - - Weight 70.2 kg (154 lb 12.8 oz) 02/07/2025 1:08 PM EDT Height 160 cm (5' 3 ) 02/07/2025 1:08 PM EDT Body Mass Index 27.42 02/07/2025 1:08 PM EDT Plan of Treatment Upcoming Encounters Date Type Department Care Team (Late st Contact Info) Description 05/30/2025 2:30 PM EDT Office Visit [facility] [address] [place] [phone] Name, MD Gilberto [address] [place] [address] Health Maintenance Due Date Last Done Comments CT Colonography 1957 FIT DNA/Cologuard 1957 FIT 1957 FOBT 1957 Sigmoidoscopy 1957 Diabetes: Foot Exam 1967 Alcohol/Substance Use Screening 1969 Hepatitis C Screening 1975 RSV Patients and Patients Aged 60 years or older (1 - Risk 60-74 years 1-dose series) 2017 Diabetes: Urine Protein Screening 03/29/2023 03/29/2022, 07/30/2021 Lipid Panel 03/29/2023 03/29/2022, 07/30/2021 Mammogram 08/05/2024 08/05/2023 Depression Screening 01/06/2025 01/06/2024, 01/06/20 SDOH Screening 01/06/2025 01/06/2024 Diabetes: Hemoglobin A1C 08/10/2025 025, 05/10/2024, 01/06/2024, Additional history exists DTaP/Tdap/Td Vaccines (3 - Td or Tdap) 09/14/2025 09/14/2015, 09/02/2013 Eye Exam 09/21/2025 09/21/2024 Tobacco Screening 02/07/2026 02/07/2025 Colonoscopy 01/26/2030 01/24/2025, 07/09/2022 Colorectal Cancer Screening 01/26/2030 Cervical Cancer Screening Discontinued HPV/Cotest Discontinued 09/26/2021 Pap Smear Discontinued 09/26/2021 Pneumococcal Vaccine: 50+ Years Completed 06/20/2023, 04/30/2013 Zoster Vaccines Completed 08/22/2023, 06/20/2023 COVID-19 Vaccine Completed 08/13/2024, , 03/29/2022, Additional history exists Influenza Vaccine Completed 08/13/2024, , 08/28/2022, Additional history exists HIB Vaccines Aged Out No longer eligi [...] patient's age to complete this topic Meningococcal Vaccine Aged Out No vandana danitza eligible based on patient's age to complete this topic RSV under 20 months Aged Out No longe r eligible based on patient's age to complete this topic Rotavirus Vaccines Aged Out No longer eligible based on patient's age to complete this topic Procedures Procedure Name Priority Date/Time Associated Diagnosis Comments POCT HEMOGLOBIN Routine 02/07/2025 1:10 PM EDT Iron deficiency anemia, unspecified iron deficiency anemia type DVT of deep femoral vein, right (CMS/HCC) POCT GLYCATED HEMOGLOBIN, TOTAL Routine 02/07/2025 1:10 PM EDT Type 2 diabetes mellitus with diabetic polyneuropathy, without long-term current use of insulin (CMS/HCC) POCT GLUCOSE Routine 02/07/2025 1:10 PM EDT Type 2 diabetes mellitus with diabetic polyneuropathy, without long-term current use of insulin ([facility]) HM COLONOSCOPY Routine 01/24/2025 ANATOMIC PATHOLOGY OUTREACH Routine 01/20/2025 2:44 PM EST HM MAMMOGRAPHY Routine 08/05/2023 ALBUMIN, RANDOM URINE W/CREATININE Routine 03/29/2022 11:09 AM EDT LIPID PANEL, STANDARD Routine 03/29/2022 11:09 AM EDT THINPREP IMAGING PAP AND HPV MRNA E6/E7 WITH REFLEX TO HPV 16,18/45 Routine 09/26/2021 2:20 PM EST from Last 3 Months or Most Recently Relevant to Health Maintenance Results * POCT HGB A1C (02/07/2025 1:10 PM EDT) Hemoglobin A1C 5.6 4.0 - 6.0 % QC Media Lot # [id number] Lot# Expiration Date [id number] Blood 02/07/2025 1:10 PM EDT us Gilberto Calixto MD POINT OF CARE TEST ENTER/EDIT OR DERABLES Final Result * POCT Glucose (02/07/2025 1:10 PM EDT) Glucose Blood, POC 120 60 - 200 mg/dL QC Media Lot # [id number] Lot# Expiration Date 82,625 Blood Capillary blood specimen / Unknown 02/07/2025 1:10 PM EDT us Gilberto Calixto MD POINT OF CARE TEST ENTER/EDIT OR DERABLES Final Result * (ABNORMAL) POCT Hemoglobin (02/07/2025 1:10 PM EDT) [facility] Hemoglobin 8.5(A) 12.0 - 15.0 QC Media Lot # [id number] Lot# Expiration Date 37,026 Blood 02/07/2025 1:10 PM EDT us Gilberto Calixto MD POINT OF CARE TEST ENTER/EDIT OR DERABLES Final Result * (ABNORMAL) Colonoscopy (01/24/2025) [facility] Colonoscopy Abnormal(A ) Normal 01/24/2025 us Gilberto Calixto MD HEALTH MAINTENANCE Final Result * Anatomic Pathology Outreach (01/20/2025 2:44 PM EST) Tissue [facility] LAB PATHOLOGY ORDERABLES Final Result * Mammography (08/05/2023) [facility] Mammogram Negative Comment:Bi-rads 1 Negative, Repeat in 1 year Anatomical Region Laterality Modality Other us Gilberto Calixto MD HEALTH MAINTENANCE Final Result * ALBUMIN, RANDOM URINE W/CREATININE (03/29/2022 11:09 AM EDT) [facility] Microalbumin Urine 0.4 See Note: mg/dL [facility] Comment: Reference Range: ?? Reference Range Not established Microalb/Creat Ratio 4 <30 mcg/mg creat [facility] Comment: ?? The ADA defines abnormalities in albumin excretion as follows: ?? Albuminuria Category ?Result (mcg/mg creatinine) ?? Normal to Mildly increased ?? <30 Moderately increased ? 30-299 ?? Severely increased ? > OR = 300 ?? The ADA recommends that at least two of three specimens collected within a 3-6 month period be abnormal before considering a patient to be within a diagnostic category. Creatinine, Urine 97 20 - 275 mg/dL [facility] 03/29/2022 11:0 9 AM EDT Gilberto Calixto MD LAB URINE ORDERABLES Final Resul t Performing Organization Address [facility] de Phone Number [facility] [address] [place] [address], * (ABNORMAL) LIPID PANEL, STANDARD (03/29/2022 11:09 AM EDT) Chol/HDLC Ratio 3.2 <5.0 (calc) [facility] Cholesterol, Total 149 <200 mg/dL [facility] HDL Cholesterol 47(L) > OR = 50 mg/dL [facility] LDL Cholesterol 73 mg/dL (calc) [facility] Comment: Reference range: <100 ?? Desirable range <100 mg/dL for primary prevention; ?? <70 mg/dL for patients with CHD or diabetic patients ?? with > or = 2 CHD risk factors. ?? LDL-C is now calculated using the Joni-Mccullough ?? calculation, which is a validated novel method providing ?? better accuracy than the Friedewald equation in the ?? estimation of LDL-C. ?? Joni CANDELARIA et al. JESSICA. 2013;310(19): 5781-1145 ?? (http://education.Kngine.[employer]/faq/SUG861) Non-HDL Cholesterol 102 <130 mg/dL (calc) [facility] Comment: For patients with diabetes plus 1 major ASCVD risk ?? factor, treating to a non-HDL-C goal of <100 mg/dL ?? (LDL-C of <70 mg/dL) is considered a therapeutic ?? option. Triglycerides 193(H) <150 mg/dL [facility] 03/29/2022 11:0 9 AM EDT us Gilberto Calixto MD LAB BLOOD ORDERABLES Final Resul t Performing Organization Address [facility] Co de Phone Number [facility] [address] [place] [address], * THINPREP TIS PAP AND HPV mRNA E6/E7 REFLEX HPV 16,18/45 (09/26/2021 2:20 PM EST) Clinical Information: [id number] [facility] COMMENT SEE COMMENT [facility] Comment: EXPLANATORY NOTE: ? The Pap is a screening test for cervical cancer. It is ?? not a diagnostic test and is subject to false negative ?? and false positive results. It is most reliable when a ?? satisfactory sample, regularly obtained, is submitted ?? with relevant clinical findings and history, and when ?? the Pap result is evaluated along with historic and ?? current clinical information. ?? COMMENT: This Pap test has been evaluated with computer assisted technology. [facility] Surgical Sales Representative: SEE COMMENT [facility] Comment: ED, CT(ASCP) CT screening location: ?? [facility] ?? [address] [place] [address] ?? [place] [address] HPV nRNA E6/E7 Not Detected Not Detected [facility] Comment: Methodology: Retail Office Associate-Mediated Amplification This assay detects E6/E7 viral messenger RNA (mRNA) from 14 high-risk HPV types (16,18,31,33,35,39,45,51,52,56,58,59,66,68). ? The analytical performance characteristics of this assay have been determined by [employer]. The modifications have not been cleared or approved by the FDA. This assay has been validated pursuant to the CLIA regulations and is used for clinical purposes. ?? For additional information, please refer to http://education.[employer]ime[employer]ighter.[employer]/faq/FLO985m7 (This link if provided for information/ educational purposes only.) Interpretation/Re sult: Negative for intraepithelial lesion or malignancy. [facility] LMP: PM [facility] Prev. BX: NONE GIVEN [facility] Prev. PAP: 7 YRS AGO UNK RESULT [facility] SOURCE: Cervix [facility] Statement Of Adequacy: SEE COMMENT [facility] Comment: Satisfactory for evaluation. Endocervical/transformation zone component present. 09/26/2021 2:20 PM EST Mirella Melvin CNM LAB PATHOLOGY ORDERABLES Final Result [facility] [address] from Last 3 Months or Most Recently Relevant to Health Maintenance Insurance [facility] STANDARD Member Subscriber Plan / Payer (Ef fective 2023-Present) Name:Mike FigueroaYessenia griffith Relation to Subscriber:Self Name:Mckeon SargentYessenia griffith Payer ID:Not on file Group ID:Not on file Type:Medicaid Address: [place] [id number] [facility] [employer] Care Teams Acetaldehyde Converter Operator Relationship Specialty Start Date End Date Name, MD Gilberto [address] [place] [address] PCP - General Family Medicine 01/12/16 [employer] 07/29/24
--- OUTSIDE RECORDS SUMMARY | 2025-02-18 15:00 | XMS_ITS ---
Author Name Zaynab MONTELONGO, RN, RD, [place] Address [address] [place] [address] Phone [phone] [facility] Care Team Providers Care Insurance Policy Issue Clerk Name Role Phone Uyen Worthy Unavailable [phone] Unavailable Unavailable [phone] [facility] Unavailable [phone] Reason for Referral Not Available Allergies, adverse reactions, alerts Allergen Type Reaction Severity Status Onset Date Ceftriaxone Allergy to substance (disorder) red streaking/burning Unknown Active N/A Vancomycin Allergy to substance (disorder) pruritus Unknown Active N/A History of medication use Medication Class Instructions Start Date End Date traMADol 50 mg Tab TAKE 2 TABLETS BY MO UTH FOUR TIMES DAILY 2022-12-18 No Data Available Chlorhexidine Gluconate 0.12 % Solution No Data Available 2022-09-26 No Data Available Deep [place] Nasal [place] 0.65 % Solution INSTILL 2 SPRAYS INTO EACH NOSTRIL NEEDED FOR CONGESTION 2022-12-23 No Data Available Albuterol Sulfate HFA 108 (9 0 Base) MCG/ACT Aerosol Solution Inhalation INHALE 2 PUFFS EVERY 4-6 HOURS NEEDED FOR WHEEZING 2022-12-09 No Data Available Amoxicillin-Pot Clavulanate 875/125 mg Tab TAKE 1 TABLET BY MOUTH TWICE DAILY 2022-12-23 No Data Available metFORMIN 850 mg Tab TAKE 1 TABLET BY MO UTH TWICE DAILY WITH THE MORNING AND EVENING MEAL 2022-12-23 No Data Available Pravastatin Sodium 20 mg Tab TAKE 1 TABL ET BY MOUTH EVERY DAY AT BEDTIME 2022-06-25 No Data Available Gabapentin 800 mg Tab 1 tab 4 times a day orally 12-23 No Data Available FREESTYLE LANCETS 100 USE ONCE DAILY 2022-07-012022 Mirtazapine 15 mg Tab TAKE 1 TABLET BY M OUTH AT BEDTIME 2022 No Data Available Escitalopram Oxalate 5 mg Tab TAKE 1 TAB LET BY MOUTH EVERY MORNING 2022-03-25 No Data Available LORazepam 1 mg Tab TAKE 1 TABLET BY JOSE A TH QD PRN 2022-09-09 No Data Available ProtonMedia Ultra 2 w/Device Kit USE DIRECTED EVERY DA Y 2023-01-17 No Data Available ZANY OXToTradeYa Ultra Strip USE DIRECTED EVERY DAY 2023-01 No Data Available Diclofenac Sodium 1 % Gel APPLY TOPICALL Y TO THE AFFECTED AREA TWICE DAILY 2022-08-28 No Data Available Lisinopril 20 mg Tab TAKE 1 TABLET BY MO [facility] DAILY 2023-01-31 No Data Available Omeprazole 20 mg Cap delayed rel TAKE 1 CAPSULE BY MOUTH DAILY 2023-02-12 No Data Available Acetaminophen Extra Strength 500 mg Tab TAKE 2 TABLETS BY MOUTH EVERY 8 HOURS 2023-02-24 No Data Available Amoxicillin 500 mg Tab TAKE 1 TABLET BY MOUTH EVERY 8 HOURS FOR 4 DAYS. 2023-02-24 No Data Available Ibuprofen 800 mg Tab TAKE 1 TABLET BY [facility] EVERY 8 HOURS NEEDED FOR PAIN. 2022-12-09 No Data Available Banophen 25 mg Cap TAKE 1 CAPSULE BY [facility] ONCE A DAY NEEDED 2023-02-25 No Data Available Mupirocin 2 % Oint APPLY TOPICALLY TO T HE AFFECTED AREA THREE TIMES DAILY FOR 10 DAYS 2023-05-12 No Data Available Sulfamethoxazole-Trimethopri m 800/160 mg Tab TAKE 1 TABLET BY MOUTH TWICE DAILY FOR 7 DAYS 2023-05-12 No Data Available Cefadroxil 500 mg Cap No Data Available 2023-05-15 N o Data Available Nicotine 7 mg/24HR Patch 24hr APPLY 1 PA TCH ONTO THE SKIN DAILY 2023-06-13 No Data Available Amoxicillin-Pot Clavulanate 875/125 mg Tab Take 1 tablet PO twice daily for 7 days 2023-06-16 No Data Available Tylenol Extra Strength 500 m g Tab 2 tablet orally Q8H 2023-06-16 No Data Available Metoprolol Tartrate 25 mg Tab 1 tablet orally BID 2022 No Data Available FREESTYLE LANCETS 100 USE TO TEST BLOOD SUGAR ONCE DAILY 2023-08-05 No Data Available GENUsTrendy COVID-19 RAPID SELF TEST KIT 1-PACK DIRECTED 2023-10-21 No Data Available EQ Aspirin Low Dose 81 mg Ta b Chewable CHEW AND SWALLOW 1 TABLET BY MOUTH ONCE DAILY 2023-12-03 No Data Available Atorvastatin Calcium 40 mg Tab TAKE 1 TABLET BY MOUTH ONCE DAILY AT BEDTIME 2023-12-03 No Data Available Eliquis 5 mg Tab 1 tab PO BID 2023-12-03 No Data Lis ilable Cefpodoxime Proxetil 200 mg Tab TAKE 1 TABLET BY MOUTH EVERY 12 HOURS FOR 7 DAYS 2023-12-28 No Data Available Doxycycline Hyclate 100 mg Tab No Data Available 2023-12-28 No Data Available Ondansetron 4 mg Tab Disintegrating Take 1 tablet (4 mg) by mouth every 8 (eight) hours if needed for nausea or vomiting. 2024-01-03 No Data Available Lidocaine 5 % Oint APPLY TOPICALLY TO T HE AFFECTED AREA IF NEEDED FOR MILD PAIN 2024-01-06 No Data Available Problem List No known problems Encounters Encounters Type Facility Date of Service Diagnosis/Co mplaint RN, CN or CP time with patient by phone; use with 1111F, BP, A1c or other CPTII codes [facility]2023 Encounter for other specifie d aftercare RN, CN or CP time with patient by phone; use with 1111F, BP, A1c or other CPTII codes [facility] 06[place]16/2023 Unlisted special service; to be used for medical record reviews and reporting CPTII codes (1111F, etc) [facility] 12/24/2023 Encounter for other specifie d aftercare Unlisted special service; to be used for medical record reviews and reporting CPTII codes (1111F, etc) [facility] 12/24/2023 Unlisted special service; to be used for medical record reviews and reporting CPTII codes (1111F, etc) [facility] 01/09/2024 Encounter for other specifie d aftercare Unlisted special service; to be used for medical record reviews and reporting CPTII codes (1111F, etc) [facility] 01/09/2024 Social History Sex Female History of Procedures Procedures Service Procedure code Service date Servicing provider Phone# RN, CN or CP time with patient by phone; use with 1111F, BP, A1c or other CPTII codes 87116 2023-06-16 No Data Available No Data Avai lable Medications prescribed in hospital were reviewed and reconciled against what they were taking prior to admission during today's visit. (1111F) 1111F 2023-06-16 No Data Available No Data Availa ble Unlisted special service; to be used for medical record reviews and reporting CPTII codes (1111F, etc) [id number] 2023-12-24 No Data Available No Data Availa ble Medications prescribed in hospital were reviewed and reconciled against what they were taking prior to admission during today's visit. (1111F) 1111F 2023-12-24 No Data Available No Data Availa ble Unlisted special service; to be used for medical record reviews and reporting CPTII codes (1111F, etc) [id number] 2024-01-09 No Data Available No Data Availa ble Medications prescribed in hospital were reviewed and reconciled against what they were taking prior to admission during today's visit. (1111F) [id number] No Data Available No Data Availa ble Functional Status No Information Mental Status No Information Assessments Not Available Plan of Care Date of Service Plans 2023-06-16 08:50:26 Jun 24, 2023, 12:30 P M 2024-01-09 07:04:01 [employer] member.
--- OUTSIDE RECORDS SUMMARY | 2025-02-18 15:00 | XMS_ITS | Encounter Summary ---
Author Organization [employer] Address [address] [place] [address] Care Team Providers Care Supervisor Of Research Name Role Phone Name, Gilberto BOURNE Primary Care Provider [phone] Reason for Visit * Reason Comments Med Refill Encounter Details Date Type Department Care Team ([facility] st Contact Info) Description 08/26/2023 Refill [facility] [address] [place], [place] [phone] Name, MD Gilberto [address] [place] [address] Type 2 diabetes mellitus with diabetic polyneuropathy, without long-term current use of insulin ([facility]) Social History Tobacco Use Types Packs/Day Years [...] 05/30/2025 2:30 PM EDT Office Visit [facility] [address] [place] [phone] Name, MD Gilberto [address] [place] [phone] documented as of this encounter Visit Diagnoses Diagnosis Type 2 diabetes mellitus with diabetic polyneuropathy, without long-term current use of insulin ([facility]) documented in this encounter Care Teams Supervisor Of Research Relationship Specialty Start Date End Date Name, MD Gilberto [address] [place] [phone] PCP - General Family Medicine 01/12/16 ubitus 07/29/24 documented as of this encounter
--- OUTSIDE RECORDS SUMMARY | 2025-02-18 15:00 | XMS_ITS | Encounter Summary ---
Author Organization [employer] Address [address] [place] [address] [address] [place] [address] Care Team Providers Care Splitter Machine Name Role Phone Name, Gilberto BOURNE Primary Care Provider [phone] Encounter Details Date Type Department Care Team (Late st Contact Info) Description 11/20/2022 [facility] [address] [place], [place] [phone] NameGilberto MD [address] [place] [phone] Social History Tobacco Use Types Packs/Day Years [...] Description 05/30/2025 2:30 PM EDT Office Visit [facility] [address] [place] [address] NameGilberto MD [address] [place], [place] [phone] documented as of this encounter Visit Diagnoses Not on filedocumented in this encounter Care Teams Splitter Machine Relationship Specialty Start Date End Date Gilberto Calixto MD [address] [place] [address] [phone] PCP - General Family Medicine 01/12/16 JDCPhosphate 07/29/24 documented as of this encounter
[2025-02-18 16:13] LABS: MANUAL DIFF FLAG NO
[2025-02-18 16:46] LABS: Iron 37 mcg/dL (30-160); Percent Iron Saturation 10 % (15-50); Total Iron Binding Capacity 359 mcg/dL (228-428); Unsaturated Iron Binding 322 ug/dL
[2025-02-18 16:52] LABS: Basophils Percent Auto 0.1 % (0-2); Hematocrit 31.5 % (37.0-47.0); Hemoglobin 9.6 g/dl (12.0-16.0); Imm Gran Abs Auto 0.05 X10*3/uL (0.00-0.03); Imm Gran Pct Auto 0.5 % (0.0-0.4); Lymphocytes Absolute Auto 1.2 X10*3/uL (1.2-4.9); Lymphocytes Percent Auto 12.9 % (20-40); Mean Corpuscular HGB Conc 30.5 g/dl (31.0-35.0); Mean Corpuscular Hemoglobin 26.7 pg (27.0-33.0); Mean Corpuscular Volume 87.7 fL (80.0-98.0); Mean Platelet Volume 11.7 fL (9.4-12.3); Monocytes Absolute Auto 0.4 X10*3/uL (0.1-1.2); Neutrophils Absolute Auto 7.9 x10*3/uL (2.0-8.3); Neutrophils Percent Auto 82.5 % (45-73); Platelet Count 308 X10*3/uL (160-400); Red Blood Count 3.59 X10*6/uL (4.20-5.50); Red Cell Distribution Width 23.2 % (11.0-16.0); White Blood Count 9.6 X10*3/uL (4.8-10.8)
[2025-02-18 16:55] LABS: Ferritin 40 ng/mL (10-250)
== END 2025-02-18 13:08 | disposition home or self-care (01) ==
LOC: HO.HHCL 13:07
PROVIDERS: Visit Provider Internal Medicine Geriatric Medicine
DX: D50.9 Iron deficiency anemia, unspecified (principal); I82.411 Acute embolism and thrombosis of right femoral vein; I26.99 Other pulmonary embolism without acute cor pulmonale
CPT/HCPCS: 36415; 82728; 83540; 85025